=== PATIENT | female | born 1970 | race Caucasian/White ===

== ENCOUNTER 2017-10-09 13:46 | Emergency (ER) | payer SELFPAY ==
[~2017-10-09] VITALS: Ht 157.5 cm; Wt 86.2 kg
[2017-10-09 13:56] VITALS: BP 112/90
--- NOTE | 2017-10-09 17:17 | NUR ---
PATIENT LEFT WITHOUT BEING SEEN BY DR. LAYNE. NO FURTHER CARE PROVIDED FOR PATIENT.
== END 2017-10-09 17:17 | disposition left against medical advice (07) ==
LOC: MED 13:46
DX: R10.32 Left lower quadrant pain (principal); Z53.21 Procedure and treatment not carried out due to patient leaving prior to being seen by health care provider